=== PATIENT | male | born 1945 ===

== ENCOUNTER 2016-08-26 16:54 | Inpatient (IN) | payer MEDICARE ==
--- NOTE | 2016-08-26 17:42 | ED PDOC ---
HPI: Chest Pain Time Seen by Provider: 08/26/16 17:06 Chief Complaint (Nursing): Chest Pain Chief Complaint (Provider): Chest Pain History Per: Patient History/Exam Limitations: no limitations Onset/Duration Of Symptoms: Hrs (2x hours prior to arrival) Context: Food (chest pain started right after patient ate) Severity: Moderate Associated Symptoms: Dyspnea Additional Complaint(s): 71 year old male with a pertinent medical history of hypertension and gout presents to the ED with complaints of anterior chest pain that started 2x hours prior to arrival but has resolved upon arrival to the ED. He reports that he has has had 2 other similar episodes in this past week, but has never had them before this week. He reports that today the chest pain started right after he ate a meal and lasted for 2x hours and it radiates to both arms and his upper back. He also reports having difficulty breathing during the episode. He denies having any other complaints. Of note: Patient is from [place]. He came to [place] 3x days ago. PMD: Patient's PMD is in [place]. Past Medical History Reviewed: Historical Data, Nursing Documentation, Vital Signs Vital Signs: Last Vital Signs Temp 98.9 F 08/26/16 17:02 Pulse 103 H 08/26/16 17:42 Resp 16 08/26/16 17:42 BP 139/93 H 08/26/16 17:42 Pulse Ox 100 08/26/16 21:10 - Medical History PMH: HTN Other PMH: gout - Surgical History Other surgeries: left shoulder surgery - Family History Family History: States: No Known Family Hx - Social History Alcohol: None Drugs: Denies - Home Medications Home Medications: Ambulatory Orders Medication Instructions Recorded Folic Acid [Folic Acid] 1 mg PO DAILY 08/26/16 Losartan [Cozaar] 100 mg PO DAILY 08/26/16 Omeprazole [Omeprazole] 20 mg PO DAILY 08/26/16 - Allergies Allergies/Adverse Reactions: Allergies Allergy/AdvReac Type Severity Reaction Status Date / Time No Known Allergies Allergy Verified 08/26/16 17:05 MAKENZIE Risk Score for UA/NSTEMI - MAKENZIE Risk Score Age > 64: YES 3 or more CAD Risk Factors: YES Known CAD (Stenosis greater than 50%): NO Aspirin use in past 7 days: NO Severe Angina: NO EKG ST changes greater than 0.5mm: NO Positive Cardiac Marker: NO MAKENZIE Score: 2 Risk %: 8% Wells Criteria for PE - Wells Criteria for Pulmonary Embolism Clinical Signs and Symptoms of DVT: No P.E is #1 Diagnosis, or Equally Likely: No Heart Rate >100: No Immobilization at least 3 days;Surgery previous 4 weeks: No Previous, objectively diagnosed PE or DVT: No Hemoptysis: No Malignancy w/treatment within 6 months, or palliative: No Total Score: 0 Review of Systems ROS Statement: Except As Marked, All Systems Reviewed And Found Negative Constitutional: Negative for: Fever Cardiovascular: Positive for: Chest Pain Respiratory: Positive for: Shortness of Breath Musculoskeletal: Positive for: Arm Pain, Back Pain (upper) Physical Exam - Reviewed Nursing Documentation Reviewed: Yes Vital Signs Reviewed: Yes - Physical Exam Appears: Positive for: Well, Non-toxic, No Acute Distress Head Exam: Positive for: ATRAUMATIC, NORMOCEPHALIC Skin: Positive for: Normal Color, Warm, Dry Eye Exam: Positive for: Normal appearance ENT: Positive for: Normal ENT Inspection Neck: Positive for: Normal, Painless ROM, Supple Cardiovascular/Chest: Positive for: Regular Rate, Rhythm, Chest Non Tender Respiratory: Positive for: Normal Breath Sounds. Negative for: Respiratory Distress Gastrointestinal/Abdominal: Positive for: Normal Exam, Soft. Negative for: Tenderness Back: Positive for: Normal Inspection Extremity: Positive for: Normal ROM, Capillary Refill (normal). Negative for: Tenderness, Pedal Edema, Calf Tenderness, Deformity, Swelling Neurologic/Psych: Positive for: Alert, Oriented (3x) - Laboratory Results Result Diagrams: 08/26/16 17:45 08/26/16 17:45 - ECG ECG Rhythm: Positive for: Normal QRS, Sinus Rhythm (normal. rate of 96). Negative for: ST/T Changes O2 Sat by Pulse Oximetry: 100 (RA) Pulse Ox Interpretation: Normal - CT Scan/US US left extremity Other Rad Studies (CT/US): Read By Radiologist, Radiology Report Reviewed CT dissection study Other Rad Studies (CT/US): Read By Radiologist, Radiology Report Reviewed Medical Decision Making Medical Decision Makin:06 Initial impression: 71 year old male with chest pain. Differential diagnoses include but are not limited to ACS. Rule out aortic dissection. Initial plan: * CT dissection study * EKG * XRay chest 1 view * US duplex lower extremity venous left * BMP * troponin I * CBC * reevaluation 18:40 US extremity read and reviewed by radiologist FINDINGS: There is normal morphology, compressibility, Doppler flow, and augmentation of the left common femoral, femoral, and popliteal veins. Visualized portions of the posterior tibial vein are unremarkable. IMPRESSION: No evidence of deep venous thrombosis in the left femoropopliteal system. 20:58 CT dissection study read and reviewed by radiologist FINDINGS: Limitations: The examination is degraded by streak artifact from the patient's left arm. Lower thorax: Please refer to the CTA Chest report from today for evaluation of the thoracic structures. VASCULATURE: Aorta: No abdominal aortic aneurysm or dissection. Celiac trunk and mesenteric arteries: Patent without significant stenosis or evidence of dissection. Renal arteries: Short segment moderate narrowing of both proximal renal arteries secondary to atherosclerotic calcification. The renal arteries are otherwise well opacified. Iliac arteries: The common iliac and external iliac arteries and the imaged portions of the common femoral arteries are patent without significant stenosis or evidence of dissection ABDOMEN: Liver: Diffuse fatty infiltration of the liver. Gallbladder and bile ducts: Tiny gallstones. No pericholecystic inflammatory changes. No biliary ductal dilation. Pancreas: No acute findings. Spleen: No acute findings. Adrenals: No acute findings. Kidneys and ureters: No acute findings. Stomach and bowel: No evident acute abnormality of the bowel. Appendix: Normal appendix. PELVIS: Bladder: No evident acute abnormality of the bladder. Reproductive: No gross acute abnormality of the imaged structures. ABDOMEN and PELVIS: Intraperitoneal space: No free intraperitoneal fluid or air. Bones/joints: No acute findings. Old, severe compression deformity of the T12 vertebral body. Soft tissues: No acute findings. Lymph nodes: No acute findings. IMPRESSION: 1. No evident acute abnormality. 2. Diffuse fatty infiltration of the liver. 3. Cholelithiasis without evidence of acute cholecystitis. 4. Additional non-acute findings as described above Scribe Attestation: Documented by Colleen Calderón, acting as a scribe for Rivka Andrea MD. Provider Scribe Attestation: All medical record entries made by the Scribe were at my direction and personally dictated by me. I have reviewed the chart and agree that the record accurately reflects my personal performance of the history, physical exam, medical decision making, and the department course for this patient. I have also personally directed, reviewed, and agree with the discharge instructions and disposition. Disposition - Clinical Impression Clinical Impression: Chest pain - Patient ED Disposition Is Patient to be Admitted: Yes Discussed With DrOksana: Orion Trent Doctor Will See Patient In The: ED Counseled Patient/Family Regarding: Studies Performed, Diagnosis - Disposition Disposition Time: 20:52 Condition: FAIR - Pt Status Changed To: Hospital Disposition Of: Observation - POA Present On Arrival: None
[2016-08-26 17:51] LABS: BASO # 0.3 K/uL (0.0-0.2); BASO % 3.3 % (0.0-2.0); EOS # 0.2 K/uL (0.0-0.7); EOS % 3.1 % (0.0-4.0); HEMATOCRIT 40.3 % (35.0-51.0); LYMPH % 13.3 % (20.0-40.0); MEAN CELL VOLUME 108.7 fl (80.0-94.0); MEAN CORPUSCULAR HEMOGLOBIN 37.2 pg (27.0-31.0); MEAN CORPUSCULAR HGB CONC 34.2 g/dL (33.0-37.0); MEAN PLATELET VOLUME 9.6 fl (7.2-11.7); MONO % 12.7 % (0.0-10.0); NEUT # 5.3 K/uL (1.8-7.0); NEUT % 67.6 % (50.0-75.0); PLATELET COUNT 139 K/uL (130-400); RED CELL DISTRIBUTION WIDTH 12.6 % (11.5-14.5); WHITE BLOOD COUNT 7.9 K/uL (4.8-10.8)
[2016-08-26 17:59] LABS: BLOOD UREA NITROGEN 11 mg/dl (9-20); CALCIUM 9.2 mg/dL (8.4-10.2); CARBON DIOXIDE 22 mmol/L (22-30); CHLORIDE 105 mmol/L (98-107); GFR AFRICAN-AMERICAN > 60; GLUCOSE,RANDOM 113 mg/dL (75-110); POTASSIUM 3.9 MMOL/L (3.6-5.0); SODIUM 140 mmol/l (132-148)
[2016-08-26] MEDS ORDERED: Sodium Chloride 0.9% 50 ML IV ONE (18:34)
[2016-08-26] MEDS ORDERED: Iohexol 300 100 ML IJ ONE (18:34)
--- NOTE | 2016-08-26 18:42 | US ---
EXAM: Venous Doppler unilateral left INDICATIONS: Pain. Leg swelling. Evaluate for deep venous thrombosis. TECHNIQUE: Duplex venous evaluation of the left lower extremity was performed utilizing graded compression, color Doppler and spectral Doppler interrogation. COMPARISON: None available. FINDINGS: There is normal morphology, compressibility, Doppler flow, and augmentation of the left common femoral, femoral, and popliteal veins. Visualized portions of the posterior tibial vein are unremarkable. IMPRESSION: No evidence of deep venous thrombosis in the left femoropopliteal system.
[2016-08-26 19:01] LABS: EOSINOPHIL 2 % (0-7); NEUTROPHIL 69 % (42-75); TOTAL CELLS COUNTED 100
--- NOTE | 2016-08-26 21:23 | CP.PCM.HP ---
History of Present Illness - History of Present Illness History of Present Illness: PCP: not on staff Chief Complaint: Chest pain HPI: 71 years old male here from [place] 3 days ago with hx of HTN, Diverticulitis, and Stomach ulcers, comes with 2 hours of chest tightness type of pain across the upper left and right chest. This is the 3rd episode of this pain in one week and it starts approximately 1-2 hours after eating, Radiates some to the right back, radiates to bilateral arms, relieved with tylenol in the past, not so today. The pain relieved spontaneously in the ED. PMH: HTN; Gout; Seizure in 2007; Diverticulitis; GERD; Stomach ulcers 9 years ago; Vertibral compression fx post fall PSH: Left shoulder surgery s/p fall 2007 SH: Quit smoking 10 years ago; Drinks Vodka daily, No illegal drug use; live with FH: No known family hx allergies: NKDA Present on Admission - Present on Admission Any Indicators Present on Admission: No History of DVT/PE: No History of Uncontrolled Diabetes: No Urinary Catheter: No Decubitus Ulcer Present: No Review of Systems - Constitutional Constitutional: absent: Anorexia, Chills, Fatigue, Fever, Headache - EENT Eyes: Requires Corrective Lenses. absent: Diplopia, Floaters, Photophobia Ears: absent: Decreased Hearing, Ear Discharge, Ear Pain, Tinnitus Nose/Mouth/Throat: absent: Epistaxis, Nasal Congestion, Nasal Discharge, Sinus Pain, Sinus Pressure - Cardiovascular Cardiovascular: Chest Pain, Edema. absent: Dyspnea, Palpitations - Respiratory Respiratory: absent: Cough, Dyspnea, Wheezing - Gastrointestinal Gastrointestinal: absent: Constipation, Diarrhea, Nausea, Vomiting - Genitourinary Genitourinary: absent: Dysuria, Flank Pain, Hematuria, Urinary Frequency - Musculoskeletal Musculoskeletal: absent: Arthralgias, Muscle Weakness - Integumentary Integumentary: Swelling. absent: Pruritus, Rash, Skin Ulcer, Sores, Striae - Neurological Neurological: absent: Confusion, Headaches, Vertigo, Weakness - Psychiatric Psychiatric: absent: Anxiety, Depression, Panic Attacks - Endocrine Endocrine: absent: Palpitations, Polydipsia, Polyphagia, Polyuria - Hematologic/Lymphatic Hematologic: absent: As Per HPI, Easy Bleeding Past Patient History - Past Medical History & Family History Past Medical History?: Yes - Past Social History Smoking Status: Former Smoker Chewing Tobacco Use: No Cigar Use: No Alcohol: None Drugs: Denies Home Situation {Lives}: With Family - CARDIAC Hx Hypertension: Yes - PULMONARY Hx Respiratory Disorders: No - NEUROLOGICAL Hx Seizures: Yes - HEENT Hx HEENT Problems: No - RENAL Hx Chronic Kidney Disease: No - ENDOCRINE/METABOLIC Hx Endocrine Disorders: No - HEMATOLOGICAL/ONCOLOGICAL Hx Blood Disorders: No - INTEGUMENTARY Hx Dermatological Problems: No - MUSCULOSKELETAL/RHEUMATOLOGICAL Hx Gout: Yes - GASTROINTESTINAL Hx Diverticulitis: Yes Hx Ulcer: Yes - GENITOURINARY/GYNECOLOGICAL Hx Genitourinary Disorders: No - PSYCHIATRIC Hx Psychophysiologic Disorder: No Hx Substance Use: No - SURGICAL HISTORY Hx Surgeries: Yes Hx Musculoskeletal Surgery: Yes (left shoulder) - ANESTHESIA Hx Anesthesia: Yes Hx Anesthesia Reactions: No Meds Allergies/Adverse Reactions: Allergies Allergy/AdvReac Type Severity Reaction Status Date / Time No Known Allergies Allergy Verified 08/26/16 17:05 Physical Exam - Constitutional Appears: No Acute Distress - Head Exam Head Exam: ATRAUMATIC, NORMAL INSPECTION - Eye Exam Eye Exam: EOMI, Normal appearance Pupil Exam: NORMAL ACCOMODATION, PERRL - ENT Exam ENT Exam: Mucous Membranes Moist, Normal Exam, Normal External Ear Exam, Normal Oropharynx - Neck Exam Neck exam: Positive for: Full Rom. Negative for: Lymphadenopathy, Tenderness - Respiratory Exam Respiratory Exam: Clear to Auscultation Bilateral. absent: Rales, Rhonchi, Wheezes - Cardiovascular Exam Cardiovascular Exam: REGULAR RHYTHM, RRR, +S1, +S2. absent: JVD - GI/Abdominal Exam GI & Abdominal Exam: Normal Bowel Sounds, Soft. absent: Organomegaly, Tenderness - Rectal Exam Rectal Exam: Deferred - Neurological Exam Neurological exam: Alert, CN II-XII Intact, Oriented x3, Reflexes Normal - Psychiatric Exam Psychiatric exam: Normal Affect, Normal Mood - Skin Skin Exam: Dry, Intact, Normal Color, Warm Results - Vital Signs Recent Vital Signs: Last Vital Signs Temp 98.9 F 08/26/16 17:02 Pulse 103 H 08/26/16 17:42 Resp 16 08/26/16 17:42 BP 139/93 H 08/26/16 17:42 Pulse Ox 100 08/26/16 21:19 - Labs Result Diagrams: 08/26/16 17:45 08/26/16 17:45 - Imaging and Cardiology Left Venous doppler lower extremity Status: Report reviewed by me Additional comment: No DVT Chest x-ray Status: Image reviewed by me Additional comment: Poor inspiration Elevated right diaphragm CT scan - chest Status: Report reviewed by me Additional comment: FINDINGS: Limitations: The examination is degraded by streak artifact from the patient's left arm. Aorta: No dissection or other acute abnormality of the thoracic aorta. Ectatic ascending aorta. Pulmonary arteries: No acute embolus in the main, lobar, or segmental pulmonary arteries. Great vessels of aortic arch: The brachiocephalic and subclavian arteries and the imaged portions of the common carotid and vertebral arteries are well-opacified without significant stenosis or evidence of dissection. Lungs: Right basilar atelectasis. Mild atelectasis and/or parenchymal scarring scattered in the rest of the lungs. The central airways are patent. Pleural space: No pleural fluid collection. No pneumothorax. Heart: Coronary artery calcification. No cardiomegaly. No pericardial fluid collection. Bones/joints: No acute findings. Soft tissues: No acute findings. Lymph nodes: No acute findings. Upper abdomen: Elevated right hemidiaphragm. IMPRESSION: 1. No thoracic aortic dissection or other evident acute abnormality. 2. Coronary artery calcification. 3. Additional non-acute findings as described above. CT scan - Abdomen Status: Report reviewed by me Additional comment: FINDINGS: Limitations: The examination is degraded by streak artifact from the patient's left arm. Lower thorax: Please refer to the CTA Chest report from today for evaluation of the thoracic structures. VASCULATURE: Aorta: No abdominal aortic aneurysm or dissection. Celiac trunk and mesenteric arteries: Patent without significant stenosis or evidence of dissection. Renal arteries: Short segment moderate narrowing of both proximal renal arteries secondary to atherosclerotic calcification. The renal arteries are otherwise well opacified. Iliac arteries: The common iliac and external iliac arteries and the imaged portions of the common femoral arteries are patent without significant stenosis or evidence of dissection ABDOMEN: Liver: Diffuse fatty infiltration of the liver. Gallbladder and bile ducts: Tiny gallstones. No pericholecystic inflammatory changes. No biliary ductal dilation. Pancreas: No acute findings. Spleen: No acute findings. Adrenals: No acute findings. Kidneys and ureters: No acute findings. Stomach and bowel: No evident acute abnormality of the bowel. Appendix: Normal appendix. PELVIS: Bladder: No evident acute abnormality of the bladder. Reproductive: No gross acute abnormality of the imaged structures. ABDOMEN and PELVIS: Intraperitoneal space: No free intraperitoneal fluid or air. Bones/joints: No acute findings. Old, severe compression deformity of the T12 vertebral body. Soft tissues: No acute findings. Lymph nodes: No acute findings. IMPRESSION: 1. No evident acute abnormality. 2. Diffuse fatty infiltration of the liver. 3. Cholelithiasis without evidence of acute cholecystitis. 4. Additional non-acute findings as described above Assessment & Plan - Assessment and Plan (Free Text) Assessment: #. Chest pain #. HTN #. Alcohol Withdrawal precaution #. Cholelithiasis and fatty liver Plan: 71 years old male here from [place] 3 days ago with hx of HTN, Diverticulitis, and Stomach ulcers, comes with 2 hours of chest tightness type of pain across the upper left and right chest. This is the 3rd episode of this pain in one week and it starts approximately 1-2 hours after eating, Radiates some to the right back and to bilateral arms, #. Chest pain r/o ACS - consult Dr Issa cardiology - serial Troponin - serial EKG - Lipid profile - ASA #. HTN uncontrolled - losartan 100mg Po daily #. Alcohol Withdrawal precaution - Thiamine/ Folic Acid - Ativan for Agitation #. Cholelithiasis stable #.fatty liver - Patient consulled on Alcohol cessation Code Status: Full - Date & Time Date: 08/26/16 Time: 21:23
[2016-08-27] MEDS ORDERED: Pneumococcal 23-Valent Vaccine IM ONE (06:00)
--- NOTE | 2016-08-27 08:02 | RAD ---
PROCEDURE: CHEST RADIOGRAPH, 1 VIEW HISTORY: chest pain COMPARISON: None available. FINDINGS: LUNGS: No active pulmonary disease. Elevated right hemidiaphragm. PLEURA: No pneumothorax or pleural fluid seen. CARDIOVASCULAR: No radiographic findings to suggest acute or significant cardiovascular disease. OSSEOUS STRUCTURES: No significant abnormalities. VISUALIZED UPPER ABDOMEN: Normal. OTHER FINDINGS: None. IMPRESSION: No active disease.
[2016-08-27] MEDS ORDERED: Metoprolol Succinate 50 mg XL Tab PO STA (08:06)
[2016-08-27] MEDS ORDERED: Enoxaparin 80 mg Syringe SC STA (08:35)
[2016-08-27 08:41] LABS: ALB/GLOB RATIO 1.1 (1.0-2.1); BILIRUBIN,TOTAL 1.9 mg/dl (0.2-1.3); TOTAL PROTEIN 7.3 G/DL (6.3-8.2)
[2016-08-27] MEDS: Pantoprazole 40 mg EC Tab PO SCH (08:45)
[2016-08-27] MEDS ORDERED: Enoxaparin 40 mg Syringe SC SCH (09:00)
[2016-08-27 09:03] LABS: TROPONIN I 0.204 ng/mL (0.00-0.120)
[2016-08-27] MEDS: Multivitamin With Minerals Tab PO SCH (10:03)
--- NOTE | 2016-08-27 10:18 | CT ---
PROCEDURE: CT Angiography Chest, Abdomen and Pelvis with and without intravenous contrast HISTORY: chest pain, back pain, arm pain COMPARISON: None. TECHNIQUE: Contiguous axial images of the chest, abdomen and pelvis were obtained in the phase of aortic enhancement. A noncontrast enhanced CT of the chest was also obtained to evaluate for possible intramural thrombus. Coronal and sagittal reformats were generated. IV dose administered: 100 cc of Omnipaque 320. Radiation dose: Total exam DLP = 1970 mGy-cm. This CT exam was performed using one or more of the following dose reduction techniques: Automated exposure control, adjustment of the mA and/or kV according to patient size, and/or use of iterative reconstruction technique. FINDINGS: CT ANGIOGRAPHY OF THE CHEST WITH & WITHOUT CONTRAST: AORTA (CHEST AND ABDOMEN): The thoracic and abdominal aorta are unremarkable, without aneurysm, dissection or rupture. No intramural thrombus identified in the thoracic aorta on the non-contrast ct of the chest. The celiac axis, superior mesenteric artery, inferior mesenteric artery and the renal arteries are widely patent. The pelvic arteries are unremarkable. LUNGS: Compressive atelectasis at the right base did elevated right hemidiaphragm. MEDIASTINUM: Unremarkable. Normal caliber aorta and pulmonary arterial trunk. No aortic dissection. Normal size heart. LYMPH NODES: Unremarkable. PLEURA: Unremarkable. No pneumothorax. No pleural fluid. BONES: Unremarkable. OTHER FINDINGS: None. CT ANGIOGRAPHY OF THE ABDOMEN WITH CONTRAST: LIVER: Unremarkable. No gross lesion or ductal dilatation. GALLBLADDER AND BILE DUCTS: Gallstones.. PANCREAS: Unremarkable. No gross lesion or ductal dilatation. SPLEEN: Unremarkable. ADRENALS: Unremarkable. No mass. KIDNEYS AND URETERS: Unremarkable. No hydronephrosis. No solid mass. VASCULATURE: Unremarkable. No aortic aneurysm. STOMACH AND BOWEL: Unremarkable. No obstruction. No gross mural thickening. APPENDIX: Normal appendix. PERITONEUM: Unremarkable. No free fluid. No free air. LYMPH NODES: Unremarkable. No enlarged lymph nodes. BLADDER: Unremarkable. REPRODUCTIVE: Unremarkable. BONES: No acute fracture. OTHER FINDINGS: None. IMPRESSION: No evidence of aortic aneurysm or dissection.
--- NOTE | 2016-08-27 11:12 | CP.PCM.PN ---
Subjective - Date & Time of Evaluation Date of Evaluation: 08/27/16 Time of Evaluation: 09:00 - Subjective Subjective: Pt's CP resolved no SOB no abd pain no N/V discussed with pt and finnding of + Troponin and need for cardiac cath- pt and agrees to the procedure. Objective - Vital Signs/Intake and Output Vital Signs (last 24 hours): Temp Pulse Resp BP Pulse Ox 98.1 F 80 18 156/83 H 97 08/27/16 07:57 08/27/16 08:56 08/27/16 07:57 08/27/16 08:56 08/27/16 07:57 - Medications Medications: Current Medications Folic Acid (Folic Acid) 1 mg PO DAILY [facility] Last Admin: 08/27/16 10:03 Dose: 1 mg Lisinopril (Zestril) 20 mg PO DAILY [facility] Last Admin: 08/27/16 08:56 Dose: 20 mg Losartan Potassium (Cozaar) 100 mg PO DAILY [facility] Last Admin: 08/27/16 08:45 Dose: 100 mg Multivitamins/Minerals (Therapeutic-M Tab) 1 tab PO DAILY [facility] Last Admin: 08/27/16 10:03 Dose: 1 tab Pantoprazole Sodium (Protonix Ec Tab) 40 mg PO DAILY [facility] Last Admin: 08/27/16 08:45 Dose: 40 mg Thiamine HCl (Vitamin B1 Tab) 100 mg PO DAILY [facility] Last Admin: 08/27/16 09:00 Dose: Not Given Zolpidem Tartrate (Ambien) 5 mg PO HS [facility] Last Admin: 08/27/16 00:42 Dose: 5 mg - Constitutional Appears: No Acute Distress - Head Exam Head Exam: ATRAUMATIC, NORMAL INSPECTION - Eye Exam Eye Exam: EOMI, Normal appearance, PERRL Pupil Exam: NORMAL ACCOMODATION - ENT Exam ENT Exam: Mucous Membranes Moist, Normal External Ear Exam - Neck Exam Neck Exam: Full ROM. absent: Meningismus - Respiratory Exam Respiratory Exam: NORMAL BREATHING PATTERN. absent: Respiratory Distress - Cardiovascular Exam Cardiovascular Exam: REGULAR RHYTHM, +S1, +S2 - GI/Abdominal Exam GI & Abdominal Exam: Soft, Normal Bowel Sounds. absent: Tenderness - Extremities Exam Extremities Exam: Full ROM, Normal Capillary Refill. absent: Calf Tenderness, Pedal Edema - Back Exam Back Exam: Full ROM, NORMAL INSPECTION. absent: CVA tenderness (L), CVA tenderness (R), paraspinal tenderness, vertebral tenderness - Neurological Exam Neurological Exam: Alert, Awake, CN II-XII Intact, Normal Gait, Oriented x3 Neuro motor strength exam: Left Upper Extremity: 5, Right Upper Extremity: 5, Left Lower Extremity: 5, Right Lower Extremity: 5 - Psychiatric Exam Psychiatric exam: Normal Affect, Normal Mood - Skin Skin Exam: Dry, Normal Color, Warm Assessment and Plan (1) NSTEMI (non-ST elevated myocardial infarction) Status: Acute (2) HTN (hypertension) Status: Chronic (3) DVT prophylaxis Status: Acute - Assessment and Plan (Free Text) Assessment: 71 y/o gent with hx of HTN, came in complaining of chest pain radiating to the shoulders and accompanied by SOB CT of chest , dissection protocol : negative. Troponin + (1) NSTEMI (non-ST elevated myocardial infarction) Status: Acute Troponin + x 2 0.22 EKG : ST depression lat leads ECHO; septal hypokinesia Pt started on Lovenox therapeutic dose, ASA, Plavix, Toprol, Losartan and Statin Cardio consulted- discussed case with dr Issa- rec Int Cardio consult for Cardiac cath Dr Purcell consulted- discussed case - rec Cardiac Cath in [place] from [place] (2) HTN (hypertension) Status: Chronic cont Torpol and Losartan (3) DVT prophylaxis Status: Acute Lovenox
--- NOTE | 2016-08-27 11:41 | CP.PCM.CON ---
History of Present Illness - History of Present Illness History of Present Illness: 71 y/o h/m admitted with chest pain For the last2-3 weeks he has been getting a tightness in his chest after eating usually lasts 1-2 hrs radiates to his arms and neck no diaphoresis/palpitaions EKG: no spec st changes Troponin: positive x 2 PMH Asthma COPD quit smoking 10 yrs ago Past Patient History - Past Medical History & Family History Past Medical History?: Yes - Past Social History Smoking Status: Former Smoker Chewing Tobacco Use: No Cigar Use: No Alcohol: None Drugs: Denies Home Situation {Lives}: With Family - CARDIAC Hx Hypertension: Yes - PULMONARY Hx Respiratory Disorders: No - NEUROLOGICAL Hx Seizures: Yes - HEENT Hx HEENT Problems: No - RENAL Hx Chronic Kidney Disease: No - ENDOCRINE/METABOLIC Hx Endocrine Disorders: No - HEMATOLOGICAL/ONCOLOGICAL Hx Blood Disorders: No - INTEGUMENTARY Hx Dermatological Problems: No - MUSCULOSKELETAL/RHEUMATOLOGICAL Hx Gout: Yes - GASTROINTESTINAL Hx Diverticulitis: Yes Hx Ulcer: Yes - GENITOURINARY/GYNECOLOGICAL Hx Genitourinary Disorders: No - PSYCHIATRIC Hx Psychophysiologic Disorder: No Hx Substance Use: No - SURGICAL HISTORY Hx Surgeries: Yes Hx Musculoskeletal Surgery: Yes (left shoulder) - ANESTHESIA Hx Anesthesia: Yes Hx Anesthesia Reactions: No Meds Allergies/Adverse Reactions: Allergies Allergy/AdvReac Type Severity Reaction Status Date / Time No Known Allergies Allergy Verified 08/26/16 17:05 - Medications Medications: Current Medications Folic Acid (Folic Acid) 1 mg PO DAILY [facility] Last Admin: 08/27/16 10:03 Dose: 1 mg Lisinopril (Zestril) 20 mg PO DAILY [facility] Last Admin: 08/27/16 08:56 Dose: 20 mg Losartan Potassium (Cozaar) 100 mg PO DAILY [facility] Last Admin: 08/27/16 08:45 Dose: 100 mg Multivitamins/Minerals (Therapeutic-M Tab) 1 tab PO DAILY [facility] Last Admin: 08/27/16 10:03 Dose: 1 tab Pantoprazole Sodium (Protonix Ec Tab) 40 mg PO DAILY [facility] Last Admin: 08/27/16 08:45 Dose: 40 mg Thiamine HCl (Vitamin B1 Tab) 100 mg PO DAILY [facility] Last Admin: 08/27/16 09:00 Dose: Not Given Zolpidem Tartrate (Ambien) 5 mg PO HS [facility] Last Admin: 08/27/16 00:42 Dose: 5 mg Physical Exam - Respiratory Exam Respiratory Exam: NORMAL BREATHING PATTERN - Cardiovascular Exam Cardiovascular Exam: REGULAR RHYTHM Results - Vital Signs Recent Vital Signs: Last Vital Signs Temp 98.1 F 08/27/16 07:57 Pulse 80 08/27/16 10:00 Resp 18 08/27/16 07:57 BP 156/83 H 08/27/16 08:56 Pulse Ox 97 08/27/16 07:57 - Labs Result Diagrams: 08/26/16 17:45 08/26/16 17:45 Assessment & Plan (1) Chest pain Assessment and Plan: NSTEMI I have recommended cardiac cath for him Status: Acute
--- NOTE | 2016-08-27 16:57 | CARD ---
APPROVED REPORT EXAM: Two-dimensional and M-mode echocardiogram with Doppler and color Doppler. Other Information Quality : AverageRhythm : NSR INDICATION LV Function:SystolicDiastolic 2D DIMENSIONS IVSd0.92 (0.7-1.1cm)LVDd4.94 (3.9-5.9cm) LVOT Diameter2.07 (1.8-2.4cm)PWd1.09 (0.7-1.1cm) IVSs0.94 (0.8-1.2cm)LVDs4.43 (2.5-4.0cm) FS (%) 10.4 %PWs1.14 (0.8-1.2cm) LVEF (%)40.0 (>50%) M-Mode DIMENSIONS Left Atrium (MM)3.81 (2.5-4.0cm)IVSd0.60 (0.7-1.1cm) Aortic Root4.70 (2.2-3.7cm)LVDd6.88 (4.0-5.6cm) Aortic Cusp Exc.2.08 (1.5-2.0cm)PWd1.09 (0.7-1.1cm) IVSs1.13 cmFS (%) 38 % LVDs4.30 (2.0-3.8cm)PWs1.36 cm Mitral Valve E/A ratio0.0 TDI E/Lateral E'0.0E/Medial E'0.0 Pulmonary Valve PV Peak Bbuqvkjy48.1cm/s LEFT VENTRICLE The left ventricle is normal size. There is normal left ventricular wall thickness. The systolic function is moderately impaired. Septal hypokinesis Transmitral Doppler flow pattern is Grade I-abnormal relaxation pattern. RIGHT VENTRICLE The right ventricle is normal size. There is normal right ventricular wall thickness. The right ventricular systolic function is normal. ATRIA The left atrium size is normal. The right atrium size is normal. AORTIC VALVE The aortic valve is not well visualized. No aortic regurgitation is present. There is no aortic valvular stenosis. MITRAL VALVE The mitral valve is not well visualized. There is no mitral valve stenosis. There is no mitral valve regurgitation noted. TRICUSPID VALVE The tricuspid valve is normal in structure and function. There is no tricuspid valve regurgitation noted. PULMONIC VALVE The pulmonary valve is normal in structure and function. There is no pulmonic valvular regurgitation. GREAT VESSELS The aortic root is normal in size. The IVC was not visualized. PERICARDIAL EFFUSION There is a trace loculated anterior pericardial effusion. <Conclusion> The left ventricle is normal size. There is normal left ventricular wall thickness. The systolic function is moderately impaired. Septal hypokinesis Transmitral Doppler flow pattern is Grade I-abnormal relaxation pattern.
[2016-08-27 19:13] LABS: PARTIAL THROMBOPLASTIN TIME 33.4 SECONDS (23.3-32.5)
[2016-08-27] MEDS ORDERED: Enoxaparin 80 mg Syringe SC SCH (21:00)
[2016-08-27 23:55] VITALS: RESP 20; O2SAT 95
--- NOTE | 2016-08-28 02:18 | CARD ---
APPROVED REPORT EKG Measurement Heart [id number] <Conclusion> Normal sinus rhythm Possible Anterior infarct, age undetermined Abnormal ECG
[2016-08-28 05:12] VITALS: BP 137/83; PULSE 82; TEMP 98.2
[2016-08-28 07:09] LABS: HEMATOCRIT 38.8 % (35.0-51.0); MEAN CORPUSCULAR HEMOGLOBIN 37.5 pg (27.0-31.0); MEAN CORPUSCULAR HGB CONC 34.1 g/dL (33.0-37.0); RED CELL DISTRIBUTION WIDTH 12.3 % (11.5-14.5); WHITE BLOOD COUNT 7.6 K/uL (4.8-10.8)
[2016-08-28 07:33] LABS: ALB/GLOB RATIO 1.1 (1.0-2.1); ALKALINE PHOSPHATASE 63 U/L (38-126); ALT/SGPT 53 U/L (21-72); AST/SGOT 59 U/L (17-59); BILIRUBIN,TOTAL 1.4 mg/dl (0.2-1.3); BLOOD UREA NITROGEN 16 mg/dl (9-20); CALCIUM 8.5 mg/dL (8.4-10.2); CARBON DIOXIDE 26 mmol/L (22-30); CHLORIDE 103 mmol/L (98-107); GFR AFRICAN-AMERICAN > 60; GLUCOSE,RANDOM 109 mg/dL (75-110); POTASSIUM 3.7 MMOL/L (3.6-5.0); SODIUM 139 mmol/l (132-148); TOTAL PROTEIN 7.2 G/DL (6.3-8.2)
--- NOTE | 2016-08-28 08:33 | CON ---
DATE: 08/27/2016 REFERRING PHYSICIAN: Dr. Nieves REASON FOR CONSULTATION: Abdominal pain. This is a 71-year-old male with ____ hypertension, diverticulitis, stomach ulcer in the past. Comes in with chest pain ____ radiating to the back, found to have an DE and ____ for cath. GI was called for essentially questionable heartburn ____ from the past ____ at this point. PAST MEDICAL HISTORY: As above. PAST SURGICAL HISTORY: As above. MEDICATIONS: Have been reviewed. All other systems have been reviewed and negative apart from the HPI. PHYSICAL EXAMINATION: VITAL SIGNS: ____. GENERAL: A pleasant, middle-aged man, lying in bed, comfortable, in no apparent distress. HEAD: Normocephalic, atraumatic. EYES: Pupils equally reactive to light bilaterally. No conjunctival pallor or icterus. NECK: Supple, normal range of motion. No lymphadenopathy appreciated. LUNGS: Coarse breath sounds bilaterally. HEART: S1, S2 ____. ABDOMEN: ____ no guarding. RECTAL: Deferred. EXTREMITIES: Pulses present bilaterally. SKIN: Warm, dry and intact. NEUROLOGIC: Alert and oriented x 3. LABORATORIES: Have been reviewed. WBCs 7.9, hemoglobin 13.8. Troponins are positive. ASSESSMENT AND PLAN: This is a 71-year-old man with a non-ST elevation myocardial infarction. Plan for an EGD, colon once clinically stable. Thank you for the consult. Dread Coronado MD, PhD cc:Ana Maria Nieves MD [id number] TT: 08/27/2016 14:37:05 Confirmation # [id number] Dictation # [id number] en
[2016-08-28] MEDS ORDERED: Metoprolol Succinate 50 mg XL Tab PO SCH (09:00)
[2016-08-28] MEDS: Pantoprazole 40 mg EC Tab PO SCH (09:43)
[2016-08-28] MEDS: Multivitamin With Minerals Tab PO SCH (09:43)
--- NOTE | 2016-08-28 12:28 | CP.PCM.DIS ---
Provider - Provider Date of Admission: 08/27/16 09:56 Attending physician: Orion Trent Consults: Cardio : Dr Purcell and Dr Issa Time Spent in preparation of Discharge (in minutes): 20 Diagnosis - Discharge Diagnosis (1) NSTEMI (non-ST elevated myocardial infarction) Status: Acute (2) HTN (hypertension) Status: Chronic (3) DVT prophylaxis Status: Acute Hospital Course - Lab Results Lab Results: Most Recent Lab Values WBC 7.6 K/uL (4.8-10.8) 08/28/16 05:35 RBC 3.52 Mil/uL (4.40-5.90) L 08/28/16 05:35 Hgb 13.2 g/dL (12.0-18.0) 08/28/16 05:35 Hct 38.8 % (35.0-51.0) 08/28/16 05:35 MCV 110.0 fl (80.0-94.0) H 08/28/16 05:35 MCH 37.5 pg (27.0-31.0) H 08/28/16 05:35 MCHC 34.1 g/dL (33.0-37.0) 08/28/16 05:35 RDW 12.3 % (11.5-14.5) 08/28/16 05:35 Plt Count 136 K/uL (130-400) 08/28/16 05:35 MPV 9.6 fl (7.2-11.7) 08/26/16 17:45 Neut % (Auto) 67.6 % (50.0-75.0) 08/26/16 17:45 Lymph % (Auto) 13.3 % (20.0-40.0) L 08/26/16 17:45 [place] % (Auto) 12.7 % (0.0-10.0) H 08/26/16 17:45 Eos % (Auto) 3.1 % (0.0-4.0) 08/26/16 17:45 Baso % (Auto) 3.3 % (0.0-2.0) H 08/26/16 17:45 Neut # 5.3 K/uL (1.8-7.0) 08/26/16 17:45 Lymph # 1.0 K/uL (1.0-4.3) 08/26/16 17:45 [place] # 1.0 K/uL (0.0-0.8) H 08/26/16 17:45 Eos # 0.2 K/uL (0.0-0.7) 08/26/16 17:45 Baso # 0.3 K/uL (0.0-0.2) H 08/26/16 17:45 Neutrophils % (Manual) 69 % (42-75) 08/26/16 17:45 Band Neutrophils % 1 % (0-2) 08/26/16 17:45 Lymphocytes % (Manual) 21 % (20-50) 08/26/16 17:45 Monocytes % (Manual) 7 % (0-10) 08/26/16 17:45 Eosinophils % (Manual) 2 % (0-7) 08/26/16 17:45 Platelet Estimate Normal (NORMAL) 08/26/16 17:45 Macrocytosis (manual) Moderate 08/26/16 17:45 PT 11.8 SECONDS (9.6-11.2) H 08/27/16 18:45 INR 1.13 (0.92-1.08) H 08/27/16 18:45 APTT 33.4 SECONDS (23.3-32.5) H 08/27/16 18:45 Sodium 139 mmol/l (132-148) 08/28/16 05:35 Potassium 3.7 MMOL/L (3.6-5.0) 08/28/16 05:35 Chloride 103 mmol/L (98-107) 08/28/16 05:35 Carbon Dioxide 26 mmol/L (22-30) 08/28/16 05:35 Anion Gap 14 (10-20) 08/28/16 05:35 BUN 16 mg/dl (9-20) 08/28/16 05:35 Creatinine 0.9 mg/dL (0.8-1.5) 08/28/16 05:35 Est GFR ( Amer) > 60 08/28/16 05:35 Est GFR (Non-Af Amer) > 60 08/28/16 05:35 Random Glucose 109 mg/dL (75-110) 08/28/16 05:35 Calcium 8.5 mg/dL (8.4-10.2) 08/28/16 05:35 Total Bilirubin 1.4 mg/dl (0.2-1.3) H 08/28/16 05:35 Direct Bilirubin 0.5 mg/ml (0.0-0.4) H 08/27/16 08:00 AST 59 U/L (17-59) D 08/28/16 05:35 ALT 53 U/L (21-72) 08/28/16 05:35 Alkaline Phosphatase 63 U/L (38-126) 08/28/16 05:35 Troponin I 0.1300 ng/mL (0.00-0.120) H* 08/28/16 05:35 Total Protein 7.2 G/DL (6.3-8.2) 08/28/16 05:35 Albumin 3.8 g/dL (3.5-5.0) 08/28/16 05:35 Globulin 3.4 gm/dL (2.2-3.9) 08/28/16 05:35 Albumin/Globulin Ratio 1.1 (1.0-2.1) 08/28/16 05:35 Triglycerides 148 mg/DL (0-149) 08/27/16 08:00 Cholesterol 155 mg/dL (0-199) 08/27/16 08:00 LDL Cholesterol Direct 94 mg/dL (0-129) 08/27/16 08:00 HDL Cholesterol 41 MG/DL (30-70) 08/27/16 08:00 - Hospital Course Hospital Course: 71 y/o gent with hx of HTN, came in complaining of chest pain radiating to the shoulders and accompanied by SOB CT of chest , dissection protocol : negative. Troponin elevated. Pt was admitted to [facility], started on Loevenox therapeutic dose, ASA, Plavix, BB, ARB and Statin. Interventional Cardiology consulted and Dr Godro Purcell did Cardiac cath in [facility] 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 Pt was transferred to [facility] from [facility] for CABG. (1) NSTEMI (non-ST elevated myocardial infarction) multivessel disease seen on Cardiac Cath Status: Acute Troponin + EKG : ST depression lat leads ECHO; septal hypokinesia Pt started on Lovenox therapeutic dose, ASA, Plavix, Toprol, Losartan and Statin Cardio consulted- discussed case with dr Issa- rec Int Cardio consult for Cardiac cath Dr Purcell consulted- Cardiac Cath showed severe multivessel CAD - plan for CABG- pt will be transferred to [facility] from [facility] (2) HTN (hypertension) Status: Chronic cont Torpol and Losartan (3) DVT prophylaxis Status: Acute Lovenox Discharge Exam - Head Exam Head Exam: ATRAUMATIC, NORMAL INSPECTION - Eye Exam Eye Exam: EOMI, Normal appearance Pupil Exam: NORMAL ACCOMODATION - ENT Exam ENT Exam: Mucous Membranes Moist, Normal External Ear Exam - Neck Exam Neck exam: Full Rom - Respiratory Exam Respiratory Exam: NORMAL BREATHING PATTERN. absent: Respiratory Distress - Cardiovascular Exam Cardiovascular Exam: REGULAR RHYTHM, +S1, +S2 - GI/Abdominal Exam GI & Abdominal Exam: Normal Bowel Sounds, Soft. absent: Tenderness - Extremities Exam Extremities exam: full ROM, normal capillary refill, pedal pulses present - Back Exam Back exam: FULL ROM. absent: CVA tenderness (L), CVA tenderness (R) - Neurological Exam Neurological exam: Alert, CN II-XII Intact, Oriented x3, Reflexes Normal - Psychiatric Exam Psychiatric exam: Normal Affect, Normal Mood - Skin Skin Exam: Dry, Normal Color, Warm Discharge Plan - Follow Up Plan Condition: FAIR Disposition: OTHER INSTITUTION Additional Instructions: pt was transferred to [facility] for Cardiac cath- plan for transfer to [facility] for CABG Referrals: Deanne Purcell MD [Staff Provider] -
== END 2016-08-28 12:30 | disposition short-term general hospital (02) | DRG 281 ==
LOC: H.ER 16:54 → H.ERHOLD 20:54 → H.TEL 22:46 → OBSVTOIN 08-27 09:56 → H.TEL 08-28 12:07
PROVIDERS: ADMIT Internal Medicine; ATTEND Internal Medicine
PROC: 3E0234Z Introduction of Serum, Toxoid and Vaccine into Muscle, Percutaneous Approach (ICD-10-PCS; principal; 2016-08-27)
DX: I21.4 Non-ST elevation (NSTEMI) myocardial infarction (principal); K57.92 Diverticulitis of intestine, part unspecified, without perforation or abscess without bleeding; I25.10 Atherosclerotic heart disease of native coronary artery without angina pectoris; Z95.1 Presence of aortocoronary bypass graft; J44.9 Chronic obstructive pulmonary disease, unspecified; K70.0 Alcoholic fatty liver; I10 Essential (primary) hypertension; J45.909 Unspecified asthma, uncomplicated; M10.9 Gout, unspecified; K21.9 Gastro-esophageal reflux disease without esophagitis; K80.20 Calculus of gallbladder without cholecystitis without obstruction; F10.10 Alcohol abuse, uncomplicated; Z23 Encounter for immunization; Z87.891 Personal history of nicotine dependence; Z87.11 Personal history of peptic ulcer disease; Z87.19 Personal history of other diseases of the digestive system; Z87.311 Personal history of (healed) other pathological fracture